=== PATIENT | female | born 1965 | race Caucasian/White ===

== ENCOUNTER 2019-02-26 20:55 | Emergency (ER) | payer BC, OTHER, SELFPAY ==
[2019-02-26 21:01] VITALS: BP 110/67; PULSE 66; RESP 20; TEMP 37.1; O2SAT 99
--- NOTE | 2019-02-26 21:02 | DI.RAD.S_ITS ---
PROCEDURE: XR SHOULDER RT MIN 2V INDICATIONS: fall TECHNIQUE: 2 views of the shoulder were acquired. COMPARISON: None. FINDINGS: Bones: Impacted fracture of the surgical neck of the right humerus. Background shoulder joint degeneration. Soft tissues: No suspicious soft tissue calcifications. IMPRESSION: Proximal right humerus fracture as above Dictated by: Des Figueroa M.D. on 02/26/2019 at 22:09 Approved by: Des Figueroa M.D. on 02/26/2019 at 22:10
--- NOTE | 2019-02-26 21:08 | ED_ITS ---
HPI - General Adult General Chief complaint: Extremity Injury, Upper Stated complaint: RT SHOULDER INJURY Time Seen by Provider: 02/26/19 21:03 Source: patient Mode of arrival: ambulatory Limitations: no limitations History of Present Illness HPI narrative: 53-year-old female on Coumadin for a blood clotting disorder here for evaluation of right shoulder injury. patient states she tripped over her dog's leash causing her to land on her shoulder. She did not hit her head. Other than the right shoulder pain she has no other symptoms. Related Data Home Medications Medication Instructions Recorded Confirmed warfarin 02/26/19 Previous Rx's Medication Instructions Recorded hydrocodone-acetaminophen [Eugene] 1 tab PO Q4-6H PRN #10 tab 02/26/19 Allergies Allergy/AdvReac Type Severity Reaction Status Date / Time Penicillins Allergy Verified 02/26/19 21:02 Tetracyclines Allergy Verified 02/26/19 21:02 Review of Systems Constitutional Denies fever(s), Denies frequent falls and Denies headache(s) ENT Ears, Nose, Mouth, and Throat: Denies headache(s) Cardiovascular Denies chest pain and Denies dyspnea Respiratory Denies dyspnea Gastrointestinal Gastrointestinal: Denies abdominal pain Genitourinary Denies dysuria Musculoskeletal Denies myalgias and Reports arthralgias (Right shoulder) Integumentary/Breasts Denies lesions and Denies rash Neurologic Denies behavioral changes, Denies frequent falls and Denies headache(s) Psychiatric Denies behavioral changes Hematologic/Lymphatic Denies easy bleeding and Denies easy bruising Allergic/Immunologic Denies urticaria PFSH Surgical History No pertinent past surgical history (Acute) Social History marital status: lives independently: Yes Exam Initial Vital Signs Initial Vital Signs: Vital Signs Temperature 98.8 F 02/26/19 21:01 Pulse Rate 66 02/26/19 21:01 Respiratory Rate 20 02/26/19 21:01 Blood Pressure 110/67 02/26/19 21:01 Pulse Oximetry 99 02/26/19 21:01 Const General: cooperative, healthy appearing, comfortable, well developed and well groomed Orientation: alert, awake and oriented x3 Resp Effort & Inspection: normal respiratory effort Cardio Rate: regular rate Pulses: radial pulses present on the right Back/Spine/Pelvis Cervical Spine: No cervical spinal tenderness Skin Lesions: no lesions Rashes: no rashes Neuro Sensory Exam: no sensory deficits noted Extrem General: normal to inspection and capillary refill normal Psych Appearance: grossly normal and well kempt Procedures Orthopedic Splinting/Casting Injury #1: Side: right Upper Extremity Injury Location: upper arm Upper Extremity Immobilizer: sling/shoulder immobilizer Post splinting neuro exam: intact Post splinting vascular exam: intact Placed by: Nursing Course Orders Ordered: ED Orders 02/26/19 21:02 XR shoulder RT min 2V Stat Discontinued Medications Hydrocodone Bitart/Acetaminophen (Vicodin Prepack) 1 bottle MISC SEEINSTR ONE Stop: 02/26/19 22:19 Last Admin: 02/26/19 22:26 Dose: 1 bottle Vital Signs - 8 hr 02/26/19 21:01 Temperature 98.8 F Pulse Rate 66 Respiratory Rate 20 Blood Pressure 110/67 Pulse Oximetry 99 Medical Decision Making Imaging Data Shoulder x-ray: Radiologist's impression: Patient: DEMARIO KHANNA CMR#: [id number] : 1965Acct:[id number] Age/Sex: 53 / FDate of Service: 02/26/19 Loc: ED Accession Number: [id number] Procedure: XR shoulder RT min 2V Ordering Provider: Milo De La Fuente D.O. PROCEDURE: XR SHOULDER RT MIN 2V INDICATIONS: fall TECHNIQUE: 2 views of the shoulder were acquired. COMPARISON: None. FINDINGS: Bones: Impacted fracture of the surgical neck of the right humerus. Background shoulder joint degeneration. Soft tissues: No suspicious soft tissue calcifications. IMPRESSION: Proximal right humerus fracture as above Dictated by: Des Figueroa M.D. on 02/26/2019 at 22:09 Approved by: Des Figueroa M.D. on 02/26/2019 at 22:10 [facility] Narrative Medical decision making narrative: X-rays show proximal humerus fracture. She is neurovascularly intact. no other injuries from the event. Did not hit her head. Will hold on head CT. He is placed in a sling and given pain medication. She is not from the area but will contact her primary provider when she returns home. She can return precautions follow-up instructions. She expressed understanding agreement plan. Discharge Plan Departure Patient Disposition: Home Clinical Impression: Fracture of humerus Qualifiers: Encounter type: initial encounter Humerus Location: proximal Fracture type: closed Fracture morphology: other fracture Fracture alignment: nondisplaced Laterality: right Qualified Code(s): S42.294A - Other nondisplaced fracture of upper end of right humerus, initial encounter for closed fracture Discharge Date/Time: 02/26/19 22:31 Interventions: ED Discharge Assessment Last Done: 02/26/19 22:31 Instructions: How to Use a Sling, DI for Shoulder Fracture Activity Restrictions/Additional Instructions: You can take her arm out of the sling as you can tolerate. You can shower like normal. Take the medication as directed. When you return home contact your primary provider to discuss follow-up. Return to the emergency department for any new or worsening symptoms Prescriptions: New hydrocodone-acetaminophen [Eugene] 5-325 mg tablet 1 tab PO Q4-6H PRN (Reason: pain) Qty: 10 RF: 0 No Action warfarin 5 mg Tablet RF: 0
[2019-02-26] MEDS: HYDROCODONE/ACET 5/325 PREPACK 1 BOTTLE MISC (22:26)
== END 2019-02-26 22:31 | disposition home or self-care (01) ==
PROVIDERS: Emergency Provider Emergency Medicine
DX: S42.294A Other nondisplaced fracture of upper end of right humerus, initial encounter for closed fracture (principal); W01.0XXA Fall on same level from slipping, tripping and stumbling without subsequent striking against object, initial encounter
CPT/HCPCS: 73030; 99282; 99283